=== PATIENT | male | born 1985 | race Caucasian/White ===

== ENCOUNTER 2017-08-08 15:15 | Emergency (ER) | payer MEDICAID ==
[2017-08-08 15:57] VITALS: BP 117/82
== END 2017-08-08 19:02 | disposition left against medical advice (07) ==
LOC: ED 15:15
DX: M25.562 Pain in left knee (principal); Z53.21 Procedure and treatment not carried out due to patient leaving prior to being seen by health care provider

== ENCOUNTER 2020-01-25 14:29 | Emergency (ER) | payer SELFPAY ==
[2020-01-25 14:58] VITALS: BP 138/90
== END 2020-01-25 19:20 | disposition left against medical advice (07) ==
LOC: ED 14:29
DX: R10.9 Unspecified abdominal pain (principal); Z53.21 Procedure and treatment not carried out due to patient leaving prior to being seen by health care provider

== ENCOUNTER 2021-01-12 21:08 | Emergency (ER) | payer SELFPAY ==
[2021-01-12 23:16] VITALS: BP 132/85
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
== END 2021-01-13 00:50 | disposition left against medical advice (07) ==
LOC: ED 21:08
DX: K62.5 Hemorrhage of anus and rectum (principal); F17.200 Nicotine dependence, unspecified, uncomplicated; F12.10 Cannabis abuse, uncomplicated
CPT/HCPCS: 99281